=== PATIENT | female | born 1950 ===

== ENCOUNTER 2024-07-05 06:07 | Day surgery (SDC) | payer OTHER, SELFPAY ==
--- NOTE | 2024-06-22 14:55 | VNURNOTE ---
Patient is scheduled for an elective L CARL on 07/05/[address] Saucedo. She is a same day patient. Spoke with patient prior to surgery. Introduced role of [facility] Liaison. Patient reports that she lives with her spouse Devin in a MULTI story home.
There are 2 steps to enter and a flight of steps to the second floor.
There is a powder room and full bath on the charge entry clerk. She currently functions independently. She has a raised toilet seat/bedside commode, cane and rolling walker.
PCP is Dr Santo Bergman.
Pharmacy is [facility] [address]
Discussed orthopedic program and post surgical plans. Reviewed that she will have VN services initially and will then start outpatient PT. She plans on going to [facility] after home therapy.
Patient to use [facility] for SDS RN, PT. Referral emailed to Kevin Denney: [email or web address]
Patient is in agreement with plan and states that her spouse will be home with her to assist.
Plan: SDS 07/05 with [facility] then outpt PT at [facility]
[2024-06-26 13:53] VITALS: BMI 28.3
[2024-06-26 14:53] LABS: Hematocrit 38.9 % (37.0-47.0); Hemoglobin 13.3 g/dL (12.0-16.0); Mean Corp Hgb Conc. 34.2 g/dL (33.0-37.0); Mean Corpuscular Hgb 29.1 pg (27.0-31.0); Mean Corpuscular Volume 85.1 fL (81.0-99.0); Mean Platelet Volume 10.5 fL (7.4-10.4); Platelet Count 269 10^3/uL (130-400); Red Blood Cell Count 4.57 10^6/uL (4.20-5.40); Red Cell Dist. Width 13.5 % (11.5-14.5); White Blood Cell Count 6.4 10^3/uL (4.8-10.8)
[2024-06-26 15:12] LABS: ALT (SGPT) 34 U/L (0-35); AST (SGOT) 26 U/L (14-36); Albumin 4.3 g/dl (3.5-5.0); Alkaline Phosphatase 73 U/L (38-126); Blood Urea Nitrogen 27 mg/dl (7-17); Calcium 9.7 mg/dl (8.4-10.2); Carbon Dioxide 28 mmol/L (22-30); Chloride 103 mmol/L (98-107); Estimated Creatinine Clearance 52 ml/min; Glucose 166 mg/dl (70-99); Potassium 4.9 mmol/L (3.5-5.1); Sodium 141 mmol/L (135-145); Total Bilirubin 0.6 mg/dl (0.2-1.3); Total Protein 6.5 g/dl (6.3-8.2); eGFR > 60.00
[2024-06-27 07:55] LABS: Glycohemoglobin (HgbA1c) 7.9 % (4.0-5.6)
--- NOTE | 2024-06-28 10:18 | PTCARENOTE ---
Elevated HgA1c of 7.9, Shay at surgeon's office notified.
--- NOTE | 2024-06-29 14:24 | VNURNOTE ---
H&P/ pre-op Ortho note faxed to Kevin Tolbert at [facility]. He confirmed receipt.
[2024-07-05] VITALS (13 sets, daily range): BP systolic 96–145; BP diastolic 57–78; PULSE 70; O2SAT 94; BMI 28.3
[2024-07-05 06:29] LABS: Glucose - Point of Care 290 mg/dl (70-99)
[2024-07-05 06:33] LABS: Glucose - Point of Care 290 mg/dl (70-99)
[2024-07-05] MEDS: TYLENOL 650 MG PO (06:57)
[2024-07-05] MEDS: CELEBREX 200 MG PO (06:57)
[2024-07-05] MEDS: NORMOSOL-R/PLASMALYTE-A 1000 IV (06:57)
[2024-07-05 09:08] LABS: Glucose - Point of Care 252 mg/dl (70-99)
[2024-07-05 09:18] LABS: Glucose - Point of Care 211 mg/dl (70-99)
[2024-07-05 10:01] LABS: Glucose - Point of Care 268 mg/dl (70-99)
[2024-07-05] MEDS: ANCEF 5 IV (11:12)
[2024-07-05 11:37] LABS: Glucose - Point of Care 283 mg/dl (70-99)
--- NOTE | 2024-07-05 16:33 | OR.RPT ---
Operative Report
Operative Report
Orthopaedic Surgery Operative Note
DATE OF OPERATION: 07/05/2024
PREOPERATIVE DIAGNOSES: Osteoarthritis, left hip
POSTOPERATIVE DIAGNOSES: Same
OPERATION PERFORMED: Left total hip arthroplasty.
SURGEON: Shane Saucedo MD
EXECUTIVE LEGAL SECRETARY: Bradley Walls PA-C who helped with patient and limb positioning and retraction
ANESTHESIA: Spinal
COMPLICATIONS: None.
ESTIMATED BLOOD LOSS: 50 mL.
DRAINS: None
SPECIMEN: None
FINDINGS: Advanced articular cartilage wear on the femoral head and acetabulum.
IMPLANTS:
Alyssa Trilogy Acetabular Shell, cluster hole, size 50
Alyssa Trilogy Highly Crosslinked PE Liner, neutral
Alyssa Acetabular bone screw, 6.5mm x1
Alyssa M/L Taper femoral stem, size 7.5 with reduced neck length and standard offset
Biolox Ceramic Head, size 36mm +0
INDICATIONS: The patient presented to my office with debilitating left hip pain due to osteoarthritis. We reviewed the natural history of this problem, as well as the risks, benefits, and alternatives of various treatment options. The patient
exhausted all nonoperative treatment options and wished to proceed with hip replacement surgery. The patient understood the risks which included, but were not limited to, bleeding, infection, failure to relieve pain, more pain than preop, damage to
blood vessels and nerves, need for reoperation, mechanical failure of the implants, wound healing problems, stiffness, instability, blood clot, pulmonary embolism, myocardial infarction, pneumonia, arrhythmia, CVA, and . The patient accepted
these risks and wished to proceed. All questions were answered, and informed consent was obtained.
PROCEDURE IN DETAIL: The patient was identified in the preoperative holding area. The left hip was identified as the operative site. The patient was taken in the operating room and transferred to the operative table. Spinal anesthesia was performed.
IV antibiotics and tranexamic acid were administered. The patient was placed in the lateral position with Stulberg hip positioners. Axillary roll was placed. The down leg was well padded. All bony prominences were well padded. The operative limb was
prepped and draped in the usual sterile fashion.
Time out was performed. A posterolateral approach to the hip was used. The skin incision was centered over the greater trochanter. This was taken down sharply through subcutaneous tissues. Meticulous hemostasis was achieved throughout the case with
electrocautery. We split the fascia colleen in line with skin incision. I split the gluteus segun bluntly. We cauterized all crossing vessels as we split it. I palpated the sciatic nerve and made sure it was well posterior in the operative field. It
was protected throughout the case.
I performed a partial bursectomy to identify the short external rotators. The gluteus medius and minimus were identified and retracted anteriorly. I incised the piriformis tendon and conjoint tendon at their insertions. These were tagged for later
repair. I then performed a trapezoidal capsulotomy. The edges were tagged for later repair. I referenced the cut edge of the capsular flap to 2 fixed points on the greater trochanter for assistance with recreation of limb length and offset. I then
dislocated the hip posteriorly. I performed a femoral neck osteotomy approximately 5 mm above the lesser trochanter, as per preoperative templating. The femoral head measured 47 mm in outer diameter. The distance between the neck cut and center of
the femoral head was measured to be 30mm. I placed a curve hohmann retractor over the anterior lip of the acetabulum between the labrum and the anterior hip capsule. A second retractor was placed inferiorly just distal to the transverse acetabular
ligament. Circumferential view of the acetabulum was achieved. I incised the labrum and pulvinar with electrocautery. I started with a 47 mm reamer and reamed down to the medial wall. I then sequentially reamed up to a 49mm reamer. This gave a nice
bed of bleeding bone with excellent column support anteriorly and posteriorly. I impacted the acetabular shell in approximately 40 degrees of abduction and 20 degrees of anteversion. I matched the anteversion of the transverse acetabular ligament. I
also made sure that the anterior rim of the socket was not proud of the anterior wall to minimize the chance of iliopsoas tendinitis. I confirmed the cup was well-seated. I placed 1 ileal screws in the posterior superior quadrant. I then impacted a
neutral liner and confirmed it was well seated with the locking mechanism.
On the femoral side, I use a box osteotome to open the proximal starting point. I found the canal with a Charnley awl and a lateralizing reamer. I then used the Alyssa M/L taper broaches sequentially to prepare the femoral canal. The size 7.5 came
to a stop at the desired level and had excellent axial and rotational stability. We trialed with a trial ball head. The hip was taken through a complete range of motion. It was noted to be stable in extension without impingement. It was stable in
the position of sleep and in flexion with internal rotation. The limb length and offset were checked compared to the capsular flap and was appropriate. The measured length between the lesser trochanter and center of the femoral head was 32.5mm.
I removed the trials. I impacted the femoral implant to match the [place] version. It had excellent axial and rotational stability. Trial ball head was placed, and I reduced the hip and took the hip through a complete range of motion. There was no
impingement in external rotation and extension. Position of sleep was stable. At 90 degrees of flexion and slight adduction, the hip could be internally rotated to 90 degrees with no subluxation. I palpated the sciatic nerve, which was tension free
and unharmed. Based on our capsular flap measurement, we had restored the offset and leg length. The trial ball head was removed, and the final ball head was impacted onto a clean and dry Becker taper. The hip was reduced.
A dilute betadine soak was performed for approximately 3 minutes, and then the hip was copiously irrigated. I repaired the capsule, piriformis, and conjoint tendon with #2 Ethibond to drill holes in the greater trochanter. Local anesthetic was
injected. The fascia colleen was closed with #1 PDS in running fashion. The subcutaneous tissues were closed with 2-0 PDS in running fashion. The skin was reapproximated with 3-0 Monocryl subcuticular suture. I placed a Prineo dressing followed by a
Mepilex Ag dressing. The patient awoke from anesthesia without difficulty. Sponge and instrument counts were correct x2 at the end of the case.
I was present and participated in the entire procedure. I checked leg length at the ankles after transfer on the bed which was equal. The patient was sent to the recovery room in stable condition.
Jacobo Saucedo MD
== END 2024-07-05 12:35 | disposition home or self-care (01) ==
LOC: SDS 06:07
PROVIDERS: ATTENDING PHYSICIAN Orthopaedic Surgery; FAMILY PHYSICIAN Family Medicine Geriatric Medicine; OTHER PHYSICIAN Internal Medicine Cardiovascular Disease; OTHER PHYSICIAN Internal Medicine Endocrinology, Diabetes & Metabolism
PROC: 0SRB04Z Replacement of Left Hip Joint with Ceramic on Polyethylene Synthetic Substitute, Open Approach (ICD-10-PCS; 2024-07-05)
DX: M16.12 Unilateral primary osteoarthritis, left hip (principal)
CPT/HCPCS: 27130; 36415; 73502; 80053; 82962; 83036; 85027; 86850; 86900; 86901; 87070; 93005; 97116; 97162; C1713; C1776